=== PATIENT | female | born 1980 | race Caucasian/White ===

== ENCOUNTER 2020-08-13 21:15 | Emergency (ER) | payer OTHER ==
[~2020-08-13] VITALS: Ht 182.9 cm; Wt 99.0 kg
[~2020-08-13 21:15] MED LIST: FLEXERIL PO; LEVEMIR1000 UNITS SC; LISINOPRIL40 MG PO; LOSARTAN POT50 MG PO; NAPROSYN500 MG PO; NOVOLOG MIX SC
[2020-08-13] MEDS ORDERED: METFORMIN HCL1000 MG PO (21:41)
[2020-08-13] MEDS ORDERED: JARDIANCE25 MG (21:42)
[2020-08-13] MEDS ORDERED: [UNRECOGNIZED DRUG - OTHER] (21:45)
[2020-08-13] MEDS ORDERED: FERRAPLUS 90 PO (21:47)
[2020-08-13] MEDS ORDERED: FIASP100 UNIT/M (21:48)
[2020-08-13] MEDS ORDERED: HARD NAILS (21:49)
[2020-08-13] MEDS ORDERED: CETIRIZINE10 MG PO (21:51)
[2020-08-13] MEDS ORDERED: LORTAB 1010 MG PO (22:16)
[2020-08-13] MEDS ORDERED: AMOXICILLIN500 MG PO (22:16)
[2020-08-13 22:36] VITALS: BP 130/78
== END 2020-08-13 22:36 | disposition home or self-care (01) | DRG 563 ==
LOC: ED 21:15
PROC: 0HQNXZZ Repair Left Foot Skin, External Approach (ICD-10-PCS; principal; 2020-08-13)
DX: S92.425A Nondisplaced fracture of distal phalanx of left great toe, initial encounter for closed fracture (principal); S91.112A Laceration without foreign body of left great toe without damage to nail, initial encounter; W20.8XXA Other cause of strike by thrown, projected or falling object, initial encounter; Y93.B3 Activity, free weights

== ENCOUNTER 2022-03-03 12:07 | Emergency (ER) | payer OTHER ==
[~2022-03-03] VITALS: Ht 182.9 cm; Wt 102.0 kg
[2022-03-03] VITALS (9 sets, daily range): BP systolic 133–145; BP diastolic 86–100
[~2022-03-03 12:07] MED LIST changes: +AMOXICILLIN500 MG PO; +CETIRIZINE10 MG PO; +FERRAPLUS 90 PO; +FIASP100 UNIT/M; +HARD NAILS; +JARDIANCE25 MG; +LORTAB 1010 MG PO; +METFORMIN HCL1000 MG PO; +[UNRECOGNIZED DRUG - OTHER]
[2022-03-03] MEDS ORDERED: NAPROXEN500 MG PO (14:55)
== END 2022-03-03 15:07 | disposition home or self-care (01) | DRG 605 ==
LOC: ED 12:07
DX: S90.111A Contusion of right great toe without damage to nail, initial encounter (principal); W22.8XXA Striking against or struck by other objects, initial encounter

== ENCOUNTER 2024-03-14 12:04 | Emergency (ER) | payer OTHER ==
[~2024-03-14] VITALS: Ht 180.3 cm; Wt 99.3 kg
[2024-03-14] VITALS (23 sets, daily range): BP systolic 127–187; BP diastolic 84–113
[~2024-03-14 12:04] MED LIST changes: +ASPIRIN 81 LOW81 MG PO; +DICYCLOMINE HYD10 MG PO; +GLIMEPIRIDE2 MG PO; +JARDIANCE25 MG PO; +LAMISIL AT1 % EX; +LORTAB 5/3255 MG PO; +MELOXICAM15 MG PO; +NAPROXEN500 MG PO; +SIMVASTATIN10 MG PO
[2024-03-14] MEDS ORDERED: HYDROCHLOROT25 MG PO (12:32)
[2024-03-14] MEDS ORDERED: AUGMENTIN500TAB PO (12:37)
[2024-03-14] MEDS ORDERED: OXYCODONE5 M1 PO (12:38)
[2024-03-14] MEDS ORDERED: PERCOCET 5/325M1 TAB PO (12:39)
[2024-03-14] MEDS ORDERED: KETOROLAC TROMETHAMINE 30 MG/ML SDV IV ONE (12:55)
[2024-03-14 13:11] LABS: BASO% 0.4 % (0-3); EOS% 0.6 % (0-8); HEMATOCRIT 40.8 % (37.0-47.0); HEMOGLOBIN 13.3 g/dl (12.0-16.0); LYMPH% 18.7 % (15-41); MEAN CELL VOLUME 87.4 fL CALC (80.0-100.0); MEAN CORPUSCULAR HGB 28.5 pG CALC (26.0-32.0); MEAN CORPUSCULAR HGB CONC 32.6 g/dL CAL (32.0-36.0); MONO% 5.6 % (2-13); NEUT# 7.09 thou/uL (2.00-7.15); NEUT% 73.7 % (42-76); RED BLOOD COUNT 4.67 mill/uL (4.20-5.60); RED CELL DISTRI WIDTH 12.9 % (11.5-15.5)
[2024-03-14 13:41] LABS: ALBUMIN 4.6 g/dL (3.2-5.0); BILIRUBIN, TOTAL 0.7 mg/dL (0.02-1.3); CREATININE 0.6 mg/dL (0.5-1.0); POTASSIUM 3.6 mmol/l (3.5-5.1); TOTAL PROTEIN 7.8 g/dL (6.3-8.2)
[2024-03-14] MEDS ORDERED: ONDANSETRON HCl 4 MG/2 ML SDV IV ONE (17:20)
[2024-03-14] MEDS ORDERED: MORPHINE SULFATE 4 MG/ML VIAL IV ONE (17:20)
[2024-03-14] MEDS ORDERED: AMOX/K CLAV875 M1 PO (18:39)
== END 2024-03-14 18:53 | disposition home or self-care (01) | DRG 866 ==
LOC: ED 12:04
PROVIDERS: Nurse Practitioner
DX: B26.9 Mumps without complication (principal); I10 Essential (primary) hypertension; E11.9 Type 2 diabetes mellitus without complications; Z79.84 Long term (current) use of oral hypoglycemic drugs; Z79.85 Long-term (current) use of injectable non-insulin antidiabetic drugs
CPT/HCPCS: J2405; Q9967